=== PATIENT | female | born 2005 | race Caucasian/White ===

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

== ENCOUNTER 2024-05-01 10:56 | Emergency (ER) | payer MEDICAID, SELFPAY ==
--- NOTE | ~2024-05-01 | US_ITS ---
CLINICAL HISTORY: confirm IUP, +hcg Ultrasound OB first trimester Comparison: None Findings: Single live intrauterine . CRL: 0.6 cm. EGA: 6 weeks and 3 days. BRYSON: 12/22/24. Previously established gestational age: N/A. Normal yolk sac. FHR: 118 bpm. No subchorionic bleed. Normal uterus and right ovary. The left ovary was not visualized. No abnormality in the left adnexa. Impression: Single live intrauterine estimated at 6 weeks and 3 days gestational age by today's ultrasound criteria. This document has been electronically signed by: Sandra Reddy MD on 05/01/2024 15:18:16
[2024-05-01 11:19] VITALS: BP 131/50; PULSE 60; RESP 16; TEMP 36.2; O2SAT 100; BMI 19.7
--- NOTE | 2024-05-01 11:21 | ED.GENADULT ---
HPI - General Adult General Chief complaint: Nausea/Vomiting/Diarrhea Stated complaint: vomiting Time Seen by Provider: 05/01/24 13:19 Source: patient, RN notes reviewed, old records reviewed and slip dumper Mode of arrival: ambulatory Limitations: language barrier History of Present Illness ED Provider: Gayatri SELLERS narrative: Patient is a 18-year-old Barbadian-speaking female presenting to the emergency department with complaint of nausea and vomiting for the past week. States she has been unable to tolerate anything by mouth. Denies any abdominal pain. States last menstrual period was 02/22/2024. Denies any vaginal bleeding or other abnormal vaginal discharge. Denies any diarrhea or constipation. Denies any prior pregnancies. MD complaint: Nausea and vomiting Onset (ago): week(s) Treatments prior to arrival: none Related Data Previous Rx's ?Medication ?Instructions ?Recorded ondansetron 4 mg disintegrating 4 mg PO Q8H PRN nausea and 05/01/24 tablet vomiting #10 tabs vit no.95-ferrous 1 tab PO DAILY #30 tabs 05/01/24 fumarate 28 mg-folic acid 800 mcg tablet () Allergies Allergy/AdvReac Type Severity Reaction Status Date / Time No Known Allergies Allergy Verified 05/01/24 11:21 Review of Systems Review of Systems: As per HPI Yes all other systems are reviewed and are negative Constitutional: Constitutional: Reports as per HPI [facility] Social History Social History Advance Directives: No Advance Directives Information Provided: No Physical Exam ED Vital Signs: Vital Signs - 24 hr 05/01/24 11:19 05/01/24 14:56 05/01/24 15:24 Temperature 97.2 F 97.6 F 97.6 F Pulse Rate 60 68 68 Respiratory Rate 16 18 18 Blood Pressure 131/50 L 153/72 H 153/72 H Pulse Oximetry 100 100 100 Oxygen Delivery Method Room Air Room Air Room Air BMI result Body Mass Index 19.7 Vital signs have been reviewed and appear to be correct. Blood pressure normal. Heart rate normal. Respiratory rate normal. Temperature normal. Oxygen saturation normal. Const General: cooperative, healthy appearing and no acute distress Orientation/consciousness: oriented to person, oriented to place, oriented to time and patient oriented x3 Limitations: no limitations HENMT Head: Yes normocephalic and Yes atraumatic Ears: external ears normal General nose exam: Normal external nose present Face and sinus: Yes face symmetric Mouth: oropharynx normal and moist mucous membranes Throat: Yes uvula midline Eyes Pupils: Equal, round and reactive pupils present Neck Neck: Yes normal visual inspection and Yes supple Resp Effort & Inspection: normal respiratory effort and able to speak in complete sentences Auscultation: clear to auscultation bilaterally Cardio Rate: regular rate Rhythm: regular rhythm Heart sounds: S1 normal heart sound present and S2 normal heart sound present GI Palpation (GI): Soft to palpation and nontender Auscultation: normoactive bowel sounds General: Yes no CVA tenderness Back/Spine/Pelvis Back: no CVA tenderness Skin General skin exam: elasticity normal and turgor normal Neuro General: oriented to person, oriented to place, oriented to time, patient oriented x3, moves all extremities, no focal motor deficits and CN's II-XI intact bilaterally Cranial nerves: Yes Equal, round and reactive pupils present Cognition (Neuro): normal cognition Extrem General: Yes full ROM, Yes no pedal edema and Yes no calf tenderness Psych Mental Status: mental status grossly normal Affect: normal affect Thought process: Normal thought process present Course Course Course Narrative: RME performed by Anna Klein PA-C. Patient is a 18 year old assigned female at presenting to the emergency department with nausea and vomiting. Patient states she has had nausea and vomiting over the last day. Detailed physical exam and review of systems are deferred to the certified ophthalmic medical technician. Labs and swabs ordered. Patient placed back in the waiting room pending room availability and results. Medical Decision Making Medical Decision Making MDM Narrative: Patient is a 18-year-old Barbadian-speaking female presenting to the emergency department with complaint of nausea and vomiting for the past week. On exam patient is awake, A+Ox3, VS WNL, afebrile, normal neurological exam without focal deficits, physical exam findings as above. Given reported symptoms and physical exam findings, initial differential includes but is not limited to viral illness, electrolyte abnormality, . Labs notable for elevated HCG, otherwise unremarkable. Viral serology negative. U/S notable for single IUP estimated at 6wks 3 days. My interpretation is in agreement with the radiologist's interpretation. No evidence of infection on UA. Results discussed with patient and all questions answered. Patient able to tolerate PO fluids in the ED. Patient states she has an BUFFING MACHINE TENDER at the clinic, will also refer to [facility]. Will send prescriptions for PNVs, zofran. Return precautions discussed. Patient verbalized understanding of and agreement with plan. In-person funeral service practitioner/embalmer was utilized for all interactions, assessments, and discussions. Differential Diagnosis Differential Diagnoses: The differential diagnosis associated with the presentation includes As per [facility] Admission/Observation Consideration of admission/observation: Escalation of care including admission/observation considered Patient would have been admitted to the hospital had their work up had any findings where hospital admission was appropriate and their clinical presentation warranted hospital admission. Lab Data [facility] Lab Attestation statement: I reviewed the patient's lab results. As per [facility] 05/01/24 11:32 05/01/24 11:31 Labs: Lab Results 05/01/24 05/01/24 05/01/24 Range/Units 11:31 11:32 14:58 WBC 5.4 (4.8-10.8) X10*3/uL RBC 4.50 (4.20-5.50) X10*6/uL Hgb 11.4 L (12.0-16.0) g/dl Hct 36.0 L (37.0-47.0) % MCV 80.0 (80.0-98.0) fL MCH 25.3 L (27.0-33.0) pg MCHC 31.7 (31.0-35.0) g/dl RDW 16.9 H (11.0-16.0) % Plt Count 221 (160-400) X10*3/uL MPV 11.2 (9.4-12.3) fL Immature Gran % (Auto) 0.2 (0.0-0.4) % Neut % (Auto) 76.3 H (45-73) % Lymph % (Auto) 17.1 L (20-40) % [place] % (Auto) 5.8 (2-11) % Eos % (Auto) 0.0 (0-4) % Baso % (Auto) 0.6 (0-2) % Lymph # (Auto) 0.9 L (1.2-4.9) X10*3/uL [place] # (Auto) 0.3 (0.1-1.2) X10*3/uL Eos # (Auto) 0.0 (0.0-0.4) X10*3/uL Baso # (Auto) 0.0 (0.0-0.2) X10*3/uL Abs Immat Gran (auto) 0.01 (0.00-0.03) X10*3/uL Absolute Neuts (auto) 4.1 (2.0-8.3) x10*3/uL Absolute Nucleated RBC 0.000 (0.0-0.012) X10*3/uL Nucleated RBC % (auto) 0.0 (0.0-0.2) /100WBC Sodium 138 (135-145) mmol/L Potassium 4.1 (3.3-5.1) mmol/L Chloride 109 H (96-108) mmol/L Carbon Dioxide 18 L (22-29) mmol/L Anion Gap 15 (12-20) BUN 12 (9-16) mg/dL Creatinine 0.75 (0.5-1.4) mg/dL Estim Creat Clear Calc 90.3 Estimated GFR > 60 Random Glucose 76 (60-115) mg/dL Calcium 9.9 (8.4-10.2) mg/dL Magnesium 2.1 (1.6-2.6) mg/dL Total Bilirubin 0.5 (0.0-1.0) mg/dL AST 23 (5-31) U/L ALT 18 (0-31) U/L Alkaline Phosphatase 41 (39-117) U/L Total Protein 8.4 H (6.5-8.0) g/dL Albumin 4.9 (3.5-5.0) g/dL Beta HCG, Quant 950739 mIU/mL Urine Color Yellow Urine Appearance Clear Urine pH 5.5 (5.0-9.0) Ur Specific [place] >= 1.030 H (1.005-1.025) Urine Protein 30 (1+) H (Neg-Trace) mg/dL Urine Glucose (UA) Negative (Negative) mg/dL Urine Ketones >=160 (Negative) mg/dL Urine Blood Negative (Negative) Urine Nitrite Negative (Negative) Ur Leukocyte Esterase Negative (Negative) Urine RBC 0-2 (0-2) /HPF Urine WBC 0-5 (0-5) /HPF Ur Squamous Epith Cells 3-5 (0-2) /HPF Urine Bacteria None Seen (None Seen) Hyaline Casts 0-2 (0-2) /LPF Influenza Type A (PCR) NEGATIVE (Negative) Influenza Type B (PCR) NEGATIVE (Negative) RSV RNA Qual (PCR) NEGATIVE (Negative) SARS-CoV-2 RNA (RT-PCR) NEGATIVE (Negative) S. pyogenes GrpA LEONEL Negative (Negative) Independent Interpretation I performed an independent interpretation of an: Ultrasound Interpretation: Single IUP [id number] Radiology Impression Discussion of test interpretation with radiology: I have reviewed the radiologist's reading. Independent Historian Clinical information obtained from an independent historian. History obtained from or confirmed by: Other External Record Review External record reviewed: Inpatient record, Office record and Outpatient record Prescription Management I considered prescription management with: Other Discharge Plan Discharge Clinical Impression: Patient Disposition: Home, Self-Care Instructions: at 7 to 10 Weeks (ED) Additional Instructions: You were evaluated in the emergency department today for nausea and vomiting. Your test was positive and your ultrasound showed one intrauterine of 6 weeks 3 days. Follow up with your BUFFING MACHINE TENDER or [facility] at [facility] within one week. A prescription for ondansetron is being sent to the pharmacy, you can take this every 8 hours as needed for nausea. You are also being prescribed daily vitamins. Return to the emergency department if you develop abdominal pain, vaginal bleeding or other abnormal vaginal discharge, fever, are unable to tolerate fluids by mouth, or any other new or concerning symptoms. Prescriptions: New PNV cmb#95-ferrous fumarate-FA [] 28 mg iron- 800 mcg tablet 1 tab PO DAILY Qty: 30 0RF ondansetron 4 mg tablet,disintegrating 4 mg PO Q8H PRN (Reason: nausea and vomiting) Qty: 10 0RF Referrals: [facility] [Provider Group] Interventions: ED Discharge Assessment Last Done: 05/01/24 15:24 Discharge Date/Time: 05/01/24 15:25 Print Language: Barbadian
[2024-05-01 11:50] LABS: MANUAL DIFF FLAG NO
[2024-05-01 11:52] LABS: Basophils Percent Auto 0.6 % (0-2); Hemoglobin 11.4 g/dl (12.0-16.0); Imm Gran Abs Auto 0.01 X10*3/uL (0.00-0.03); Imm Gran Pct Auto 0.2 % (0.0-0.4); Lymphocytes Absolute Auto 0.9 X10*3/uL (1.2-4.9); Lymphocytes Percent Auto 17.1 % (20-40); Mean Corpuscular HGB Conc 31.7 g/dl (31.0-35.0); Mean Corpuscular Hemoglobin 25.3 pg (27.0-33.0); Mean Platelet Volume 11.2 fL (9.4-12.3); Monocytes Absolute Auto 0.3 X10*3/uL (0.1-1.2); Monocytes Percent Auto 5.8 % (2-11); Neutrophils Absolute Auto 4.1 x10*3/uL (2.0-8.3); Neutrophils Percent Auto 76.3 % (45-73); Platelet Count 221 X10*3/uL (160-400); Red Cell Distribution Width 16.9 % (11.0-16.0); White Blood Count 5.4 X10*3/uL (4.8-10.8)
[2024-05-01 12:18] LABS: IDNOW Serial# 58CA691E; Strep A Nucleic Acid Negative (Negative)
[2024-05-01 12:20] LABS: Alanine Aminotransferase 18 U/L (0-31); Albumin Level 4.9 g/dL (3.5-5.0); Alkaline Phosphatase 41 U/L (39-117); Anion Gap 15 (12-20); Aspartate Amino Transferase 23 U/L (5-31); Blood Urea Nitrogen 12 mg/dL (9-16); Calcium 9.9 mg/dL (8.4-10.2); Carbon Dioxide 18 mmol/L (22-29); Chloride 109 mmol/L (96-108); Creatinine Clr Calc Pharmacy 90.3; Estimated Glomerular Filt Rate > 60; Glucose Random 76 mg/dL (60-115); Magnesium 2.1 mg/dL (1.6-2.6); Potassium 4.1 mmol/L (3.3-5.1); Sodium 138 mmol/L (135-145); Total Protein 8.4 g/dL (6.5-8.0)
[2024-05-01 12:27] LABS: Influenza A PCR NEGATIVE (Negative); Influenza B PCR NEGATIVE (Negative); Resp Syncy Virus RNA Qual PCR NEGATIVE (Negative); SARS COV2 PCR INHOUSE NEGATIVE (Negative)
[2024-05-01 12:35] LABS: Bilirubin Total 0.5 mg/dL (0.0-1.0); HCG Quantitative 109889 mIU/mL
[2024-05-01 14:56] VITALS: BP 153/72; PULSE 68; RESP 18; TEMP 36.4; O2SAT 100
[2024-05-01 15:06] LABS: Appearance Urine Clear; Color Urine Yellow; Glucose Urine UA Negative (Negative); Leukocyte Esterase Urine Negative (Negative); Nitrite Urine Negative (Negative); PH 5.5 (5.0-9.0); Specific Gravity - Urine >= 1.030 (1.005-1.025); UMIC TRIGGER UACC YES; Urine Blood Negative (Negative); Urine Ketones >=160 mg/dL (Negative); Urine Protein 30 (1+) mg/dL (Neg-Trace)
[2024-05-01 15:08] LABS: Bacteria Urine None Seen (None Seen); Hyaline Casts Urine 0-2 /LPF (0-2); RBC Urine 0-2 /HPF (0-2); WBC Urine 0-5 /HPF (0-5)
[2024-05-01 15:24] VITALS: BP 153/72; PULSE 68; RESP 18; TEMP 36.4; O2SAT 100
== END 2024-05-01 15:25 | disposition home or self-care (01) ==
PROVIDERS: Physician Assistant Medical; Emergency Provider Emergency Medicine
DX: O21.9 Vomiting of pregnancy, unspecified (principal); Z3A.01 Less than 8 weeks gestation of pregnancy; Z03.818 Encounter for observation for suspected exposure to other biological agents ruled out
CPT/HCPCS: 0241U; 76801; 76817; 80053; 81001; 83735; 84702; 85025; 87651; 99283; 99284

== ENCOUNTER 2024-05-18 08:33 | Emergency (ER) | payer MEDICAID, SELFPAY ==
[2024-05-18 09:07] VITALS: BP 113/61; PULSE 64; RESP 16; TEMP 36.6; O2SAT 100; BMI 22.7
[2024-05-18 11:52] LABS: MANUAL DIFF FLAG NO
[2024-05-18 11:54] LABS: Basophils Percent Auto 0.5 % (0-2); Eosinophils Absolute Auto 0.1 X10*3/uL (0.0-0.4); Eosinophils Percent Auto 1.4 % (0-4); Hematocrit 34.5 % (37.0-47.0); Hemoglobin 11.1 g/dl (12.0-16.0); Imm Gran Abs Auto 0.02 X10*3/uL (0.00-0.03); Imm Gran Pct Auto 0.3 % (0.0-0.4); Lymphocytes Absolute Auto 1.9 X10*3/uL (1.2-4.9); Lymphocytes Percent Auto 32.6 % (20-40); Mean Corpuscular HGB Conc 32.2 g/dl (31.0-35.0); Mean Corpuscular Hemoglobin 26.2 pg (27.0-33.0); Mean Corpuscular Volume 81.4 fL (80.0-98.0); Mean Platelet Volume 10.5 fL (9.4-12.3); Monocytes Absolute Auto 0.3 X10*3/uL (0.1-1.2); Monocytes Percent Auto 5.6 % (2-11); Neutrophils Absolute Auto 3.5 x10*3/uL (2.0-8.3); Neutrophils Percent Auto 59.6 % (45-73); Platelet Count 205 X10*3/uL (160-400); Red Blood Count 4.24 X10*6/uL (4.20-5.50); Red Cell Distribution Width 18.9 % (11.0-16.0); White Blood Count 5.9 X10*3/uL (4.8-10.8)
--- NOTE | 2024-05-18 12:02 | ED_ITS ---
HPI - Nausea/Vomiting/Diarrhea General Chief complaint: Nausea/Vomiting/Diarrhea Stated complaint: preg+, vomiting Time Seen by Provider: 05/18/24 10:42 Source: patient, family, RN notes reviewed and order takers supervisor Mode of arrival: ambulatory Limitations: language barrier ([employer] Worker used) History of Present Illness ED Provider: Patricia Shah PA-C HPI Narrative: This is a 18-year-old [place]ese-speaking female, , 2 months , who presents emergency department with complaints of intermittent nausea and vomiting. Patient states that she has not followed up with her OBGYN as they are unable to see her until she was officially 9 weeks. She denies any vaginal bleeding or discharge. She was still able to tolerate food and drink, however states that occasionally she will get nausea and vomiting. She was last seen in the emergency room several weeks ago was prescribed Zofran. She states that she was here for medication refill. She also does not have any refills on her vitamin. She denies any fevers, chills, abdominal pain, urinary symptoms. No other complaints or concerns at this time. MD elicited complaint: nausea and vomiting Associated nausea: Yes Associated abdominal pain: No Location of pain: none Exacerbating factors: none Relieving factors: none Associated symptoms: denies other symptoms Related Data Previous Rx's ?Medication ?Instructions ?Recorded ondansetron 4 mg disintegrating 4 mg PO Q8H PRN nausea and 05/01/24 tablet vomiting #10 tabs vit no.95-ferrous 1 tab PO DAILY #30 tabs 05/01/24 fumarate 28 mg-folic acid 800 mcg tablet () doxylamine succinate 25 mg tablet 25 mg PO BEDTIME PRN nausea and 05/18/24 (Unisom (doxylamine)) vomiting #20 tabs vits no.126-ferrous fum 1 tab PO .QD #30 tabs 05/18/24 28 mg iron-folic acid 800 mcg tablet (Classic ) pyridoxine (vitamin B6) 25 mg 25 mg PO .QHS #20 tabs 05/18/24 tablet Allergies Allergy/AdvReac Type Severity Reaction Status Date / Time No Known Allergies Allergy Verified 05/18/24 09:11 Review of Systems 2 Review of Systems: Yes all other systems are reviewed and are negative Constitutional: Constitutional: Reports as per HPI Gastrointestinal: Gastrointestinal: Reports nausea PMFSH Social History Social History Advance Directives: No Advance Directives Information Provided: Yes Do you have a plan to hurt others: No Plan Physical Exam 2 Vital Signs: Vital Signs: Last Vital Signs Temp 98 F 05/18/24 13:47 Pulse 64 05/18/24 13:47 Resp 16 05/18/24 13:47 BP 113/61 05/18/24 13:47 Pulse Ox 100 05/18/24 13:47 O2 Del Method Room Air 05/18/24 13:47 BMI result Body Mass Index 22.7 Const: General: cooperative, comfortable and no acute distress O rientation/consciousness: patient oriented x3 Limitations: no limitations HEENT: Head: Yes normal to inspection, Yes normocephalic and Yes atraumatic Ears: hearing grossly normal bilaterally General nose exam: Normal external nose present Face and sinus: Yes normal facial exam Mouth: Normal oral and palatal mucosa present, oropharynx normal and moist mucous membranes Throat: Yes posterior oropharynx normal Eyes: General: appearance normal, both eyes and all related structures E yelids: Yes eyelids normal Conjunctivae: conjunctivae normal Sclerae: s clerae normal Pupils: Equal, round and reactive pupils present EOM: EOMs intact bilaterally Neck: Neck: Yes normal visual inspection, Yes full ROM and Yes no lymphadenopathy Lymphatic: no lymphadenopathy noted Chest: Chest palpation & inspection: normal inspection of the chest Resp: Effort & Inspection: normal respiratory effort and able to speak in complete sentences Auscultation: clear to auscultation bilaterally, no crackles, no rales, no rhonchi and no wheezes Cardio: Rate: regular rate Rhythm: regular rhythm Heart sounds: S1 normal heart sound present and S2 normal heart sound present GI: Other: Abdomen soft nontender, nondistended Inspection: Yes normal to inspection Skin: General skin exam: no rashes or lesions noted Trauma: no lacerations or abrasions Wounds: no wounds Neuro: General: patient oriented x3 and moves all extremities Cranial nerves: Yes Equal, round and reactive pupils present Extrem: General: Yes normal to inspection Right upper extremity: normal to inspection Left upper extremity: normal to inspection Right lower extremity: normal to inspection Left lower extremity: normal to inspection Course Reevaluation(s) Reevaluation #1: Labs returned, she has no leukocytosis, normocytic anemia with an H&H of 11.1/34.5, chemistry with no significant electrolyte derangement[place] [address]. UA does not appear to be infected. Discussed overall workup with patient. Discussed with mother as well as patient that Zofran is not a good long-term solution for nausea and vomiting in . Discussed conservative measures to prevent nausea, as well as starting on vitamin B6, and Unisom. She will also be given refill of vitamin. Stressed the importance of following up with an OBGYN. She will call next week as she will be 9 weeks next week. Given strict return precautions. She is eating and drinking without difficulty. At this time, there is no need for IV fluids as she was able to eat and drink without return of nausea or vomiting. Patient stable for discharge. Medical Decision Making Medical Decision Making [facility] Narrative: Not this is a 18-year-old female, , who presents emergency department with ongoing intermittent nausea and vomiting. She states that she is able to eat and drink. She does not appear to be dehydrated. On arrival, vital signs within normal limits. Abdomen is soft and nontender. No abdominal cramping or bleeding. She has not received OBGYN care, she will she is unable to see them as she was not 9 weeks as of yet. Differential diagnoses include hyperemesis gravidarum, nausea and vomiting in , dehydration, electrolyte derangement. Will obtain basic labs to ensure no electrolyte derangement. She has no vaginal bleeding, or vaginal spotting therefore no further workup indicated at this time. Differential Diagnosis Differential Diagnoses: The differential diagnosis associated with the presentation includes See above Lab Data [facility] Lab Attestation statement: I reviewed the patient's lab results. 05/18/24 11:48 05/18/24 11:48 Labs: Lab Results 05/18/24 05/18/24 Range/Units 11:48 12:04 WBC 5.9 (4.8-10.8) X10*3/uL RBC 4.24 (4.20-5.50) X10*6/uL Hgb 11.1 L (12.0-16.0) g/dl Hct 34.5 L (37.0-47.0) % MCV 81.4 (80.0-98.0) fL MCH 26.2 L (27.0-33.0) pg MCHC 32.2 (31.0-35.0) g/dl RDW 18.9 H (11.0-16.0) % Plt Count 205 (160-400) X10*3/uL MPV 10.5 (9.4-12.3) fL Immature Gran % (Auto) 0.3 (0.0-0.4) % Neut % (Auto) 59.6 (45-73) % Lymph % (Auto) 32.6 (20-40) % [place] % (Auto) 5.6 (2-11) % Eos % (Auto) 1.4 (0-4) % Baso % (Auto) 0.5 (0-2) % Lymph # (Auto) 1.9 (1.2-4.9) X10*3/uL [place] # (Auto) 0.3 (0.1-1.2) X10*3/uL Eos # (Auto) 0.1 (0.0-0.4) X10*3/uL Baso # (Auto) 0.0 (0.0-0.2) X10*3/uL Abs Immat Gran (auto) 0.02 (0.00-0.03) X10*3/uL Absolute Neuts (auto) 3.5 (2.0-8.3) x10*3/uL Absolute Nucleated RBC 0.000 (0.0-0.012) X10*3/uL Nucleated RBC % (auto) 0.0 (0.0-0.2) /100WBC Sodium 139 (135-145) mmol/L Potassium 3.7 (3.3-5.1) mmol/L Chloride 108 (96-108) mmol/L Carbon Dioxide 23 (22-29) mmol/L Anion Gap 12 (12-20) BUN 7 L (9-16) mg/dL Creatinine 0.65 (0.5-1.4) mg/dL Estim Creat Clear Calc 105.0 Estimated GFR > 60 Random Glucose 71 (60-115) mg/dL Calcium 9.7 (8.4-10.2) mg/dL Magnesium 2.2 (1.6-2.6) mg/dL Total Bilirubin 0.3 (0.0-1.0) mg/dL Direct Bilirubin 0.1 (0.0-0.5) mg/dL AST 21 (5-31) U/L ALT 16 (0-31) U/L Alkaline Phosphatase 37 L (39-117) U/L Total Protein 7.8 (6.5-8.0) g/dL Albumin 4.4 (3.5-5.0) g/dL Beta HCG, Quant > 389575 mIU/mL Urine Color Dark Yellow Urine Appearance Clear Urine pH 6.0 (5.0-9.0) Ur Specific [place] 1.025 (1.005-1.025) Urine Protein Trace (Neg-Trace) mg/dL Urine Glucose (UA) Negative (Negative) mg/dL Urine Ketones 15 (Negative) mg/dL Urine Blood Negative (Negative) Urine Nitrite Negative (Negative) Ur Leukocyte Esterase Small (1+) H (Negative) Urine RBC 0-2 (0-2) /HPF Urine WBC 0-5 (0-5) /HPF Ur Squamous Epith Cells 0-2 (0-2) /HPF Urine Bacteria None Seen (None Seen) Hyaline Casts 0-2 (0-2) /LPF Discharge Plan Discharge Clinical Impression: Nausea and vomiting during Patient Disposition: Home, Self-Care Instructions: Nausea and Vomiting in (ED) Additional Instructions: You were seen in the emergency department due to nausea and vomiting in . This is very common in early . It is very important that you continue to eat small meals throughout the day. Eating a cracker or something salty prior to waking up in the morning can also help with nausea and vomiting. Please continue taking vitamin as prescribed. Unisom and vitamin B6 can be helpful, take at night. This helps prevent nausea and vomiting. Please follow-up with the OBGYN, call to make an appointment. You are also being prescribed daily vitamins. Return to the emergency department if you develop abdominal pain, vaginal bleeding or other abnormal vaginal discharge, fever, are unable to tolerate fluids by mouth, or any other new or concerning symptoms. Prescriptions: New Classic 28 mg iron- 800 mcg tablet 1 tab PO .QD Qty: 30 0RF Unisom (doxylamine) 25 mg tablet 25 mg PO BEDTIME PRN (Reason: nausea and vomiting) Qty: 20 0RF pyridoxine (vitamin B6) 25 mg tablet 25 mg PO .QHS Qty: 20 0RF No Action PNV cmb#95-ferrous fumarate-FA [] 28 mg iron- 800 mcg tablet 1 tab PO DAILY Qty: 30 0RF ondansetron 4 mg tablet,disintegrating 4 mg PO Q8H PRN (Reason: nausea and vomiting) Qty: 10 0RF Interventions: ED Discharge Assessment Last Done: 05/18/24 13:47 Discharge Date/Time: 05/18/24 13:49 Print Language: [place]
[2024-05-18 12:29] LABS: Appearance Urine Clear; Color Urine Dark Yellow; Glucose Urine UA Negative (Negative); Leukocyte Esterase Urine Small (1+) (Negative); Nitrite Urine Negative (Negative); Specific Gravity - Urine 1.025 (1.005-1.025); UMIC TRIGGER UACC YES; Urine Blood Negative (Negative); Urine Ketones 15 mg/dL (Negative); Urine Protein Trace mg/dL (Neg-Trace)
[2024-05-18 12:39] LABS: Alanine Aminotransferase 16 U/L (0-31); Albumin Level 4.4 g/dL (3.5-5.0); Anion Gap 12 (12-20); Aspartate Amino Transferase 21 U/L (5-31); Bilirubin Direct 0.1 mg/dL (0.0-0.5); Bilirubin Total 0.3 mg/dL (0.0-1.0); Blood Urea Nitrogen 7 mg/dL (9-16); Calcium 9.7 mg/dL (8.4-10.2); Carbon Dioxide 23 mmol/L (22-29); Chloride 108 mmol/L (96-108); Estimated Glomerular Filt Rate > 60; Glucose Random 71 mg/dL (60-115); Magnesium 2.2 mg/dL (1.6-2.6); Potassium 3.7 mmol/L (3.3-5.1); Sodium 139 mmol/L (135-145); Total Protein 7.8 g/dL (6.5-8.0)
[2024-05-18 12:41] LABS: Bacteria Urine None Seen (None Seen); Hyaline Casts Urine 0-2 /LPF (0-2); RBC Urine 0-2 /HPF (0-2); Squamous Epithelial Cell Urine 0-2 /HPF (0-2); UACC Culture Trigger YES; WBC Urine 0-5 /HPF (0-5)
--- OUTSIDE RECORDS SUMMARY | 2024-05-18 12:50 | XMS_ITS | Clinical Summary ---
Author Organization [employer] Address [address] [place] [address] Care Team Providers Care Thermal Engineer Name Role Phone Lisbet Gutierrez MD Primary Care Provider [phone] Allergies No known active allergies Medications levonorgestrel-e thinyl estradiol (Aviane, Alesse, Lessina) 0.1-20 MG-MCG tabletIndication s:Dysmenorrhea Take 1 tablet by mouth Once per day. 60 tablet 3 12/26/2023 Active Active Problems Problem Noted Date Diagnosed Date Other specified health status 12/26/2023 Overview (12/26/2023): -next comprehensive annual evaluation due after 12/25/24 -eye care not needed. -dental home encouraged. -amandeep care proxy given and filed 12/26/23 Assessment & Plan (12/26/2023 11:54 AM EDT): -next comprehensive annual evaluation due after 12/25/24 -eye care not needed. -dental home encouraged. -amandeep care proxy given and filed 12/26/23 Dysmenorrhea 12/26/2023 Overview (03/03/2024): -Will trial ibuprofen 600 mg for pain. Family planning options discussed. Pt desires oral contraceptive pills. -Start options discussed -Advised take at same time daily -Continue condoms for 7 days -Side effects and danger signs reviewed -May have some breast tenderness or irregular bleeding for first few months. This is not worrisome. -Report headache, shortness of breath, chest pain, visual changes, abdominal pain, calf pain or jaundice. -Condoms offered -Pill check 2 months - Pt is doing well with her OCP 03/03/24 Assessment & Plan (03/03/2024 11:48 AM EST): -Will trial ibuprofen 600 mg for pain. Family planning options discussed. Pt desires oral contraceptive pills. -Start options discussed -Advised take at same time daily -Continue condoms for 7 days -Side effects and danger signs reviewed -May have some breast tenderness or irregular bleeding for first few months. This is not worrisome. -Report headache, shortness of breath, chest pain, visual changes, abdominal pain, calf pain or jaundice. -Condoms offered -Pill check 2 months - Pt is doing well with her OCP 03/03/24 Assessment & Plan (12/26/2023 11:54 AM EDT): -Will trial ibuprofen 600 mg for pain. Family planning options discussed. Pt desires oral contraceptive pills. -Start options discussed -Advised take at same time daily -Continue condoms for 7 days -Side effects and danger signs reviewed -May have some breast tenderness or irregular bleeding for first few months. This is not worrisome. -Report headache, shortness of breath, chest pain, visual changes, abdominal pain, calf pain or jaundice. -Condoms offered -Pill check 2 months Vaginal discharge 12/26/2023 Overview (12/26/2023): Pt reports vaginal discharge. Opted for self swab. SureSwabs sent 12/26/23 Assessment & Plan (12/26/2023 11:51 AM EDT): Pt reports vaginal discharge. Opted for self swab. SureSwabs sent 12/26/23 Encounters Date Type Department Care Team Description 03/03/2024 11:15 AM EST Office Visit [facility] [address] [place] [address] Lisbet Gutierrez MD Dysmenorrhea (Primary Dx) 03/03/2024 Travel from Last 3 Months Immunizations Name Administration Dates Next Due Influenza, seasonal, injectable, preservative fr ee 12/26/2023 Social History Tobacco Use Types Packs/Day Years Used Date Smoking Tobacco: Never Smokeless Tobacco: Never Tobacco Cessation:Counseling Given: Not Answered Depression Answer Date Recorded Patient Health Questionnaire-9 Score 7 12/26/2023 Patient Health Questionnaire-9 Score 7 12/26/2023 Last PHQ-9: Questionnaire Data Not on file 1 Housing Stability Answer Date Recorded What is your housing situation today? I have lacey hernandez 12/18/[address] you li ve. Do you have problems with any of the following? Pests such as bugs, ants, or mice 12/18/2023 Food Insecurity Answer Date Recorded Within the past 12 months, y ou worried that your food would run out before you got money to buy more: Often true 2023 Within the past 12 months,th e food you bought just didn't last and you didn't have enough money to get more: Sometimes True 12/26/2023 Transportation Answer Date Recorded In the past 12 months, has l ack of transportation kept you from medical appts, meetings, work or from getting things needed for daily living? No 12/26/2023 Utilities Answer Date Recorded In the past 12 months, has t he electric, gas, oil or water company threatened to shut off services in your home? No 12/18/2023 Depression Answer Date Recorded Patient Health Questionnaire-2 Score 2 12/26/2023 Internet Access Answer Date Recorded Internet Access Q1 No 12/26/2023 Internet Access Q2 I do not want or need it 06/2023 Comments Unknown Sex and Gender Information Value Date Recorded Sex Assigned at Female 08/08/2023 12:30 PM EDT Legal Sex Female 12:30 PM EDT Gender Identity Female 08/08/2023 12:30 PM EDT Sexual Orientation Straight 08/08/2023 12 :30 PM EDT Last Filed Vital Signs Vital Sign Reading Time Taken Comments Blood Pressure 111/77 03/03/2024 11:18 AM EST Pulse 106 03/03/2024 11:18 AM EST Temperature 36.1 ??C (97 ??F) 03/03/2024 11:18 AM EST Respiratory Rate 20 03/03/2024 11:18 AM EST Oxygen Saturation 97% 03/03/2024 11:18 AM EST Inhaled Oxygen Concentration - - Weight 46.8 kg (103 lb 3.2 oz) 03/03/2024 11:18 AM EST Height 155 cm (5' 1.02 ) 03/03/2024 11:18 AM EST Body Mass Index 19.48 03/03/2024 11:18 AM EST Plan of Treatment Upcoming Encounters Date Type Department Care Team (Late st Contact Info) Description 07/01/2024 9:30 AM EDT Office Visit [facility] [address] [place] [address] Lisbet Gutierrez MD [address] [place] [address] Health Maintenance Due Date Last Done Comments HIV Screening 2004 Fluoride Varnish 05/16/2005 MMR Vaccines (1 of 1 - Standard series) 2005 Varicella Vaccines (1 of 2 - 13+ 2-dose series) 2017 Family Planning (PISQ) 09/14/2019 HPV Vaccines (1 - 3-dose series) 09/14/2019 Hepatitis C Screening 2022 DTaP/Tdap/Td Vaccines (1 - Tdap) 09/14/2023 Hepatitis B Vaccines (1 of 3 - 19+ 3-dose series) 09/14/2023 Alcohol/Substance Use Screening 12/25/2024 12/26/2023 COVID-19 Vaccine (1 - 2023-2 5 season) 2024 Postponed from 11/22 (Patient Refused) Chlamydia and Gonorrhea Screening 12/25/2024 12/26/2023 Depression Screening 12/25/2024 12/26/2023, 12/26/2023 SDOH Screening 12/25/2024 12/26/2023 Tobacco Screening 03/03/2025 03/03/2024 Zoster Vaccines (1 of 2) 2054 RSV Patients and Patients Aged 60 years or older (1 - 1-dose 75+ series) 09/14/2079 Influenza Vaccine Completed 12/26/2023 HIB Vaccines Aged Out No longer eligi ble based on patient's age to complete this topic Hepatitis A Vaccines Aged Out No long er eligible based on patient's age to complete this topic IPV Vaccines Aged Out No longer eligi ble based on patient's age to complete this topic Meningococcal Vaccine Aged Out No bharati kitty eligible based on patient's age to complete this topic Pneumococcal Vaccine: Pediatrics (0 to 5 Years) and At-Risk Patients (6 to 49) Years) Aged Out No longer eligible b ased on patient's age to complete this topic RSV under 20 months Aged Out No longe r eligible based on patient's age to complete this topic Rotavirus Vaccines Aged Out No longer eligible based on patient's age to complete this topic Procedures Procedure Name Priority Date/Time Associated Diagnosis Comments URINALYSIS, COMPLETE, WITH REFLEX TO CULTURE Routine 05/18/2024 12:04 PM EST MAGNESIUM Routine 05/18/2024 11:48 AM EST BASIC METABOLIC PANEL Routine 05/18/2024 11:48 AM EST HEPATIC FUNCTION PANEL Routine 05/18/2024 11:48 AM EST CBC WITH AUTO DIFFERENTIAL Routine 05/18/2024 11:48 AM EST CHLAMYDIA/N. GONORRHOEAE RNA, TMA, UROGENITAL Routine 12/26/2023 12:00 AM EDT Encounter for screening for human immunodeficiency virus (HIV) from Last 3 Months or Most Recently Relevant to Health Maintenance Results * (ABNORMAL) Urinalysis, Complete, with Reflex to Culture (05/18/2024 12:04 PM EST) Color Urine Dark Yellow [facility] Appearance Urine Clear [facility] PH 6.0 5.0 - 9.0 [facility] Glucose Urine UA Negative Negative mg/dL [facility] Urine Blood Negative Negative [facility] Specific Eucha - Urine 1.025 1.005 - 1.025 [facility] Urine Protein Trace Neg-Trace mg/dL [facility] Urine Ketones 15 Negative mg/dL [facility] Nitrite Urine Negative Negative [facility] Leukocyte Esterase Urine Small (1+)(A) Negative [facility] RBC Urine 0-2 0 - 2 /HPF [facility] Urine WBC 0-5 0 - 5 /HPF [facility] Urine Squamous Epithelial Cell 0-2 0 - 2 /HPF [facility] Urine Bacteria None Seen None Seen [facility] Hyaline Casts, Urine 0-2 0 - 2 /LPF [facility] 05/18/2024 12:0 4 PM EST 05/18/2024 12:09 PM EST Narrative [facility] - 05/18/2024 12:42 PM EST Urine, Clean Catch us Generic External Data Provider LAB URINE ORDERAB LES Final Result [facility] [address] [place] [address] [phone] * (ABNORMAL) CBC auto differential (05/18/2024 11:48 AM EST) White Blood Count 5.9 4.8 - 10.8 X10*3/uL [facility] Red Blood Count 4.24 4.20 - 5.50 X10*6/uL [facility] Hemoglobin 11.1(L) 12.0 - 16.0 g/dl [facility] Hematocrit 34.5(L) 37.0 - 47.0 % [facility] Mean Corpuscular Volume 81.4 80.0 - 98.0 fL [facility] Mean Corpuscular Hemoglobin 26.2(L) 27.0 - 33.0 pg [facility] Mean Corpuscular HGB Conc 32.2 31.0 - 35.0 g/dl [facility] Red Cell Distribution Width 18.9(H) 11.0 - 16.0 % [facility] Platelet Count 205 160 - 400 X10*3/uL [facility] Mean Platelet Volume 10.5 9.4 - 12.3 fL [facility] Neutrophils Percent Auto 59.6 45 - 73 % [facility] Imm Gran Pct Auto 0.3 0.0 - 0.4 % [facility] Lymphocytes Percent Auto 32.6 20 - 40 % [facility] Monocytes Percent Auto 5.6 2 - 11 % [facility] Eosinophils Percent Auto 1.4 0 - 4 % [facility] Basophils Percent Auto 0.5 0 - 2 % [facility] NRBC Pct Auto 0.0 0.0 - 0.2 /100WBC [facility] Neutrophils Absolute Auto 3.5 2.0 - 8.3 x10*3/uL [facility] Imm Gran Abs Auto 0.02 0.00 - 0.03 X10*3/uL [facility] Lymphocytes Absolute Auto 1.9 1.2 - 4.9 X10*3/uL [facility] Monocytes Absolute Auto 0.3 0.1 - 1.2 X10*3/uL [facility] Eosinophils Absolute Auto 0.1 0.0 - 0.4 X10*3/uL [facility] Basophils Absolute Auto 0.0 0.0 - 0.2 X10*3/uL [facility] NRBC Abs Auto 0.000 0.0 - 0.012 X10*3/uL [facility] 05/18/2024 11:4 8 AM EST 05/18/2024 11:51 AM EST us Generic External Data Provider LAB BLOOD ORDERAB LES Final Result [facility] [address] [place] [address] [phone] * Chlamydia/N. Gonorrhoeae RNA, TMA, Urine (12/26/2023 12:00 AM EDT) CT PCR NOT DETECTED Not Detect. [facility] Comment:A not detected test result does not exclude the possibilityof infection because test results can be affected byimproper specimen collection, concurrent antibiotic therapy,or the number of organisms in the specimen which may bebelow the sensitivity of the test. As with many diagnostictests, results from the Xpert CT/NG assay should beinterpreted in conjunction with other laboratory andclinical data available to the clinician.Xpert CT/NG performance has not been evaluated in patientsless than 14 years of age. The assay should not be used forthe evaluationof suspected sexual abuse or for other medico-legalindications. Additional testing is recommended in anycircumstance when false positive or false negative resultscould lead to adverse medical, social or psychologicalconsequences. NG PCR NOT DETECTED Not Detect. [facility] Comment:A not detected test result does not exclude the possibilityof infection because test results can be affected byimproper specimen collection, concurrent antibiotic therapy,or the number of organisms in the specimen which may bebelow the sensitivity of the test. As with many diagnostictests, results from the Xpert CT/NG assay should beinterpreted in conjunction with other laboratory andclinical data available to the clinician.Xpert CT/NG performance has not been evaluated in patientsless than 14 years of age. The assay should not be used forthe evaluationof suspected sexual abuse or for other medico-legalindications. Additional testing is recommended in anycircumstance when false positive or false negative resultscould lead to adverse medical, social or psychologicalconsequences. 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
[2024-05-18 13:04] LABS: HCG Quantitative > 225000 mIU/mL
[2024-05-18 13:15] LABS: Alkaline Phosphatase 37 U/L (39-117)
[2024-05-18 13:47] VITALS: BP 113/61; PULSE 64; RESP 16; TEMP 36.6; O2SAT 100
== END 2024-05-18 13:49 | disposition home or self-care (01) ==
PROVIDERS: Physician Assistant Medical; Emergency Provider Emergency Medicine; PCP Family Medicine
DX: O21.0 Mild hyperemesis gravidarum (principal); Z3A.09 9 weeks gestation of pregnancy
CPT/HCPCS: 36415; 80048; 80076; 81001; 83735; 84702; 85025; 87086; 99282; 99283